=== PATIENT | male | born 1970 | race Two or more races ===

== ENCOUNTER 2017-03-02 00:52 | Emergency (ER) | payer SELFPAY ==
[~2017-03-02] VITALS: Ht 162.6 cm; Wt 61.2 kg
[2017-03-02] MEDS ORDERED: InsuLIN REG 1unit/0.01ml Soln (100units/ml) IV ONE (02:15)
[2017-03-02] MEDS ORDERED: HYDROmorphone HCL 2 MG/ML VL IV ONE (02:15)
[2017-03-02] MEDS ORDERED: ONDANSETRON HCL 4 MG/2 ML VIAL IV ONE ×2 (02:15→08:15)
[2017-03-02 02:29] LABS: Basophils # (auto) 0 uL; Basophils % (auto) 0.3 % (0.0-2.0); Eosinophils # (auto) 0 uL; Eosinophils % (auto) 0.1 % (0.0-7.0); Hematocrit 36.1 % (41.0-53.0); Hemoglobin 12.1 g/dL (13.5-17.5); Lymphocytes # (auto) 1.2 uL; Lymphocytes % (auto) 14.9 % (10.0-50.0); Mean Corpuscular Hemoglobin 30.5 pg (28.0-32.0); Mean Corpuscular Hgb Conc. 33.6 g/dL (32.0-36.0); Mean Corpuscular Volume 91.1 fL (80.0-100.0); Mean Platelet Volume 8.1 fL (7.4-10.4); Monocytes # (auto) 0.4 uL; Monocytes % (auto) 5.4 % (0.0-12.0); Neutrophils # (auto) 6.6 uL; Neutrophils % (auto) 79.3 % (37.0-80.0); Platelet Count (auto) 310 10^3/uL (140-450); Red Cell Distribution Width 12.6 % (11.6-16.0); White Blood Cell 8.3 10^3/uL (4.4-10.8)
[2017-03-02 02:42] LABS: Albumin 3.4 g/dL (3.4-5.0); BUN/Creatinine Ratio 18.5; Calcium 8.1 mg/dL (8.5-10.1); INR 0.95 (0.9-1.15); Partial Thromboplastin Time 26.2 sec (22.64-33.71); Prothrombin Time 10.3 sec (9.37-12.3)
[2017-03-02 02:45] LABS: Bilirubin, Total 0.3 mg/dL (0.2-1.0); Total Protein 6.6 g/dL (6.4-8.2)
[2017-03-02] MEDS ORDERED: LACTULOSE 20Gm/30ML SOLN PO ONE (05:15)
[2017-03-02 06:09] LABS: Magnesium 2.2 mg/dL (1.6-2.6)
[2017-03-02 06:58] LABS: B-Type Natriuretic Peptide 16.75 pg/mL (0-100)
[2017-03-02 07:02] LABS: Temperature: 22.5 C (20.0-25.0)
[2017-03-02] MEDS ORDERED: SODIUM CHLORIDE 0.9% 1,000 ML IV ONE ×2 (07:08)
[2017-03-02] MEDS ORDERED: PIPERACILLIN-TAZOB 3.375GM 100 ML IV ONE ×2 (07:15→08:45)
[2017-03-02] MEDS ORDERED: MORPHINE SULFATE 4 MG/ML SYRG IV ONE (07:15)
[2017-03-02 12:06] VITALS: BP 150/89
== END 2017-03-02 12:51 | disposition home or self-care (01) ==
LOC: ER 00:52
DX: L03.116 Cellulitis of left lower limb (principal); E11.65 Type 2 diabetes mellitus with hyperglycemia; K31.84 Gastroparesis
CPT/HCPCS: 36415; 71010; 74176; 80053; 82962; 83605; 83735; 83880; 84484; 85025; 85610; 85730; 87040; 93971; 94761; 96365; 96366; 96375; 96376; 99285; J1170; J1815; J2270; J2405; J2543; J7030

== ENCOUNTER 2019-12-08 22:05 | Inpatient (IN) | payer MEDICAID ==
[~2019-12-08] VITALS: Ht 175.3 cm; Wt 45.4 kg
[2019-12-08] MEDS ORDERED: DEXTROSE 50% SYRINGE 50 ML IV ONE (22:11)
[2019-12-08 22:14] VITALS: BP 71/49
--- NOTE | 2019-12-08 22:14 | NUR ---
Respiratory note: PLACED PT ON VENT V19, VENT CONNECTED TO RED OUTLET AND O2 SOURCE. ALARMS ARE SET AND AUDIBLE AMBU BAG AND MASK AT BEDSIDE. BS ARE FINE COURSE T/O, SXD FOR LARGE AMOUNT OF THICK ESPINOZA W/ BLOOD TINGE. SPUTUM SAMPLE OBTAINED AND SENT TO LAB. WILL CONTINUE TO MONITOR.
[2019-12-08] MEDS: NOREPINEPHRINE 8 MG/250ML KIT 250 ML IV SCH (22:15)
[2019-12-08 22:45] LABS: Basophils # (auto) 0 10 ^3/uL (0-0.2); Monocytes # (auto) 0.4 10 ^3/uL (0-1.3); Neutrophils # (auto) 5.6 10 ^3/uL (1.6-8.6); Nucleated Red Blood Cells % 0.1 %
[2019-12-08 22:46] LABS: Basophils % (auto) 0.4 % (0.0-2.0); Eosinophils # (auto) 0.1 10 ^3/uL (0-0.8); Eosinophils % (auto) 0.8 % (0.0-7.0); Hematocrit 23.6 % (41.0-53.0); Hemoglobin 8.3 g/dL (13.5-17.5); Lymphocytes % (auto) 14.7 % (10.0-50.0); Mean Corpuscular Hemoglobin 30.9 pg (28.0-32.0); Mean Corpuscular Hgb Conc. 35.2 g/dL (32.0-36.0); Mean Corpuscular Volume 87.9 fL (80.0-100.0); Monocytes % (auto) 5.5 % (0.0-12.0); Neutrophils % (auto) 78.6 % (37.0-80.0); Platelet Count (auto) 24 10^3/uL (140-450); Red Blood Cells 2.68 10^6/uL (4.5-5.90); Red Cell Distribution Width 16.4 % (11.8-14.3); White Blood Cell 7.1 10^3/uL (4.4-10.8)
[2019-12-08 22:57] LABS: BUN/Creatinine Ratio 39.8; Calcium 7.5 mg/dL (8.5-10.1); Magnesium 2.7 mg/dL (1.6-2.6); Potassium 4.2 mmol/L (3.5-5.1)
[2019-12-08 23:00] LABS: Albumin 0.9 g/dL (3.4-5.0)
[2019-12-08 23:02] LABS: Bilirubin, Total 0.6 mg/dL (0.2-1.0); Total Protein 3.2 g/dL (6.4-8.2)
[2019-12-08 23:03] LABS: INR 1.8 (0.9-1.15); Partial Thromboplastin Time 46.5 sec (23.64-32.05)
[2019-12-08] MEDS ORDERED: DOPamine 1600MCG/ML D5W 250 ML IV SCH (23:23)
[2019-12-08] MEDS ORDERED: DEXTROSE (50%) 50ML SYRG IV ONE (23:45)
[2019-12-09] VITALS (11 sets, daily range): BP systolic 69–119; BP diastolic 44–84
--- NOTE | 2019-12-09 00:03 | NUR ---
Respiratory note: AT BEDSIDE FOR ROUTINE VENT CHECK RR AND FIO2 WHERE CHANGED POST ABG RESULTS. RN EFRAIN AWARE OF CHANGES. PTS CURRENT TEMP IS 93.7F. WARMING MEASURES HAVE BEEN TAKEN.
[2019-12-09] MEDS ORDERED: NOREPINEPHRINE 8 MG/250ML KIT 250 ML IV SCH (00:15)
[2019-12-09] MEDS ORDERED: PANTOPRAZOLE 40mg/50ML NS AE 50 ML IV ONE (02:00)
[2019-12-09] MEDS ORDERED: PANTOPRAZOLE 40 MG/10 ML VIAL INJ IV ONE (02:00)
[2019-12-09] MEDS ORDERED: DEXTROSE (50%) 50ML SYRG IV PRN (09:00)
[2019-12-09] MEDS ORDERED: MORPHINE SULF INJ 2 MG/ML SYRINGE 1ML IV PRN ×2 (09:00→20:00)
[2019-12-09] MEDS ORDERED: NITROGLYCERIN 0.4 MG SL TAB SL PRN (09:00)
[2019-12-09] MEDS ORDERED: SODIUM CHLORIDE 0.9% 1,000 ML IV SCH (09:00)
--- NOTE | 2019-12-09 10:15 | NUR ---
Respiratory note: PT TRANSPORTED TO CT, VENTILATED VIA AMBU BAG DURING TRANSPORT. PT PLACED ON CT VENT DURING SCAN. PT TRANSPORTED BACK TO ER, VENTILATED VIA AMBU BAG. TRANSPORT WENT WITHOUT INCIDENT. PT PLACED BACK ON VENT #V19, PLUGGED INTO A RED OUTLET AND PROPER O2 SOURCE. AMBU BAG/MASK AT BEDSIDE. RN AT BEDSIDE.
[2019-12-09] MEDS: InsuLIN REG 1unit/0.01ml Soln (100units/ml) SC SCH ×2 (11:50→18:32)
[2019-12-09] MEDS: ACCU-CHEK COMFORT CURVE STRIP VI SCH ×2 (11:50→18:32)
[2019-12-09] MEDS: D5W/SOD CHL 0.45% 1,000 ML IV SCH (12:10)
--- NOTE | 2019-12-09 12:25 | NUR ---
AIR MATTRESS: Air bed ordered at [facility], [place],Reference # [id number]; ETA 12/09/19 anytime.[facility] delivery at facility right now, informed need of bed. Call [facility] if need to follow up at [phone] Addendum: 12/09/19 at 1227 by Lily Hardy RN Amended: Links added.
[2019-12-09] MEDS ORDERED: ONDANSETRON HCL 4 MG/2 ML VIAL IV PRN (20:00)
[2019-12-09] MEDS: NOREPINEPHRINE 8 MG/250ML KIT 250 ML IV SCH (22:15)
[2019-12-10] VITALS (10 sets, daily range): BP systolic 93–142; BP diastolic 60–89
[2019-12-10] MEDS: ACCU-CHEK COMFORT CURVE STRIP VI SCH ×3 (00:45→12:08)
[2019-12-10] MEDS: D5W/SOD CHL 0.45% 1,000 ML IV SCH ×2 (01:32→12:55)
[2019-12-10] MEDS: InsuLIN REG 1unit/0.01ml Soln (100units/ml) SC SCH ×3 (06:44→12:00)
[2019-12-10 07:13] LABS: INR 1.88 (0.9-1.15); Partial Thromboplastin Time 41.5 sec (23.64-32.05)
[2019-12-10 07:19] LABS: Albumin 1.1 g/dL (3.4-5.0); BUN/Creatinine Ratio 38.6; Calcium 7.7 mg/dL (8.5-10.1)
[2019-12-10 07:21] LABS: Bilirubin, Total 0.8 mg/dL (0.2-1.0); Total Protein 4.1 g/dL (6.4-8.2)
--- NOTE | 2019-12-10 08:00 | NUR ---
WOUND CARE NOTE: PATIENT ADMITTED TO [facility] WITH DIAGNOSIS OF S/P CPR. HE IS NOTED TO HAVE QUINN SCORE OF 6. HE IS RESTING ON SPECIALTY AIR BED. PATIENT INTUBATED, NON RESPONSIVE. WOUND PHOTOS WERE TAKEN UPON ADMIT BY BEDSIDE NURSE, WOUND CONSULT ORDERED. HE IS AWAITING TRANSFER TO [facility] PER MD ORDER. PATIENT HAS A MULTITUDE OF WOUNDS INCLUDING DTI/UNSTAGEABLE PRESSURE ULCERS TO SACRUM, BLE, LEFT HAND, AND BACK. HE ALSO NOTED TO HAVE NECROTIC DFU ULCERS TO BILATERAL FEET, SEVERE MASD WITH SKIN EROSION TO SACRUM/BUTTOCKS/PERINEUM/SCROTAL SKIN. ALL WOUNDS MEASURED, PHOTOGRAPHED, CLEANSED, AND DRESSED AT THIS TIME. ALL WOUND STATS CAN BE FOUND WITHIN WOUND ASSESSMENT LINKED TO THIS NOTE. PATIENT REPOSITIONED ONTO SUPINE POSITION AT THIS TIME. PATIENT WILL BE TRANSFERRING OUT, NO WOUND ORDERS WILL BE PLACED. RECOMMEND UNTIL DISCHARGE: FREQUENT TURN SCHEDULE Q 2 HOURS, PRN CONDITION PERMITS, WITH PRESSURE REDISTRIBUTION USING PILLOWS/WEDGES, BID/PRN APPLICATION ZGUARD TO ALL SKIN EROSION OF SACRUM/BUTTOCKS/SCROTUM, CONTINUATION WITH SPECIALTY AIR BED, SKIN/WOUND CARE PLAN. Addendum: 12/10/19 at 1840 by Shalini Cash RN Amended: Links added.
--- NOTE | 2019-12-10 09:54 | NUR ---
I called [facility] Librarian Specialist Charisma regarding this patient being transferred to [place]-faxed her clinical information as requested-she will review it and give me a call back to let me know how to proceed.
[2019-12-10] MEDS ORDERED: CLOTRIMAZOLE 1 % CREAM 15GM TOP SCH (10:00)
--- NOTE | 2019-12-10 11:07 | NUR ---
I received a message from Charisma at [facility] letting me know that patient can be transferred to [facility]-auth number for [facility] is [id number], auth for [facility] is [id number].
--- NOTE | 2019-12-10 14:21 | NUR ---
I spoke with Joshua at [facility], I let him know that this patient does need a continuous full fashioned garment knitter, everything is set for ETA 1830.
--- NOTE | 2019-12-10 15:36 | NUR ---
D/C Planning Per consult for [facility]. Order was faxed to [facility] and [facility]. Per Irlanda with [facility] patient will be going to [facility] in [place] ) to room 502 under [facility]. Per Irlanda patient can arrived to facility after 18:00. Placed followed up called to [facility], spoke to Lorenzo. Advised Lorenzo patient is on a VENT with [facility] and will need a nurse during transportation to facility. Requested for tow picker to be at 18:00. Per Lorenzo they can do a 17:30 tow picker. TOMMY Perez from the ER was informed of d/c plan.
[2019-12-11] MEDS ORDERED: FUROSEMIDE 100 MG/10ML VIAL IV ONE (12:15)
== END 2019-12-10 17:15 | disposition short-term general hospital (02) | DRG 196 ==
LOC: EDBD 22:05 → EDSEX 22:05 → ER 22:08 → OVERFLOW 22:09
PROVIDERS: ADMIT Nurse Practitioner Acute Care; ATTEND Internal Medicine
PROC: 5A1945Z Respiratory Ventilation, 24-96 Consecutive Hours (ICD-10-PCS; principal; 2019-12-08)
PROC: 0BH17EZ Insertion of Endotracheal Airway into Trachea, Via Natural or Artificial Opening (ICD-10-PCS; 2019-12-08)
PROC: 5A12012 Performance of Cardiac Output, Single, Manual (ICD-10-PCS; 2019-12-08)
DX: I46.9 Cardiac arrest, cause unspecified (principal); J96.01 Acute respiratory failure with hypoxia; N17.0 Acute kidney failure with tubular necrosis; E43 Unspecified severe protein-calorie malnutrition; G37.3 Acute transverse myelitis in demyelinating disease of central nervous system; A04.72 Enterocolitis due to Clostridium difficile, not specified as recurrent; Z99.11 Dependence on respirator [ventilator] status; G93.1 Anoxic brain damage, not elsewhere classified; G61.0 Guillain-Barre syndrome; L97.529 Non-pressure chronic ulcer of other part of left foot with unspecified severity; Z66 Do not resuscitate; D63.1 Anemia in chronic kidney disease; L97.523 Non-pressure chronic ulcer of other part of left foot with necrosis of muscle; M86.8X7 Other osteomyelitis, ankle and foot; E11.43 Type 2 diabetes mellitus with diabetic autonomic (poly)neuropathy; K31.84 Gastroparesis; E11.621 Type 2 diabetes mellitus with foot ulcer; E11.649 Type 2 diabetes mellitus with hypoglycemia without coma; N18.6 End stage renal disease; E11.22 Type 2 diabetes mellitus with diabetic chronic kidney disease; E11.65 Type 2 diabetes mellitus with hyperglycemia; J18.9 Pneumonia, unspecified organism; Z74.01 Bed confinement status; Z68.1 Body mass index [BMI] 19.9 or less, adult
CPT/HCPCS: 36415; 36600; 70450; 71045; 71250; 73700; 74176; 80053; 82805; 82962; 83735; 83880; 84443; 84484; 85025; 85379; 85610; 85730; 87070; 87077; 87081; 87186; 87205; 93005; 94002; 94003; 96361; 96365; 96375; 99291; C9113; G0378; J1815